=== PATIENT | male | born 1945 | race Caucasian/White ===

== ENCOUNTER → 2017-04-04 | Outpatient (CLI) | payer MEDICARE ==
[~2017-04-04] MED LIST: ASPI-496 PO; OMNIPAQUE 350 MG/ML, 100ML BOTTLE ONE
== END | disposition home or self-care (01) ==
LOC: CFH 09:38
PROVIDERS: ATTEND Internal Medicine Hematology & Oncology
DX: C25.9 Malignant neoplasm of pancreas, unspecified (principal); M47.896 Other spondylosis, lumbar region; R59.1 Generalized enlarged lymph nodes; N28.1 Cyst of kidney, acquired; K86.89 Other specified diseases of pancreas
CPT/HCPCS: 74170; Q9967

== ENCOUNTER 2017-06-14 16:01 | Inpatient (IN) | payer MEDICARE ==
[~2017-06-14] VITALS: Ht 162.6 cm; Wt 59.8 kg
[~2017-06-14 16:01] MED LIST changes: -OMNIPAQUE 350 MG/ML, 100ML BOTTLE ONE
[2017-06-14 16:56] LABS: HEMATOCRIT 39.8 % (39.2-51.8); WHITE BLOOD COUNT 10.8 x10^3/uL (3.4-10)
[2017-06-14 17:07] LABS: BLOOD UREA NITROGEN 11 mg/dL (7-18)
[2017-06-14 17:10] LABS: ASPARTATE AMINO TRANSFERASE 119 U/L (15-37)
[2017-06-14] MEDS ORDERED: SODIUM CHLORIDE FLUSH 10ML SYR IVF ONE (19:30)
[2017-06-14] MEDS ORDERED: OMNIPAQUE 350 MG/ML, 100ML BOTTLE ONE (20:00)
[2017-06-14] MEDS ORDERED: SODIUM CHLORIDE 0.9% 1,000 ML IV SCH (22:18)
[2017-06-14] MEDS ORDERED: POLYETHYLENE GLYCOL 17 GM PACKET PO PRN (22:30)
[2017-06-14] MEDS ORDERED: DOCUSATE 100 MG CAPSULE PO PRN (22:30)
[2017-06-14] MEDS ORDERED: ONDANSETRON 2MG/ML, 2ML IVPush PRN (22:30)
[2017-06-14] MEDS ORDERED: morphine SULFATE 10 MG/ML, 1ML IVPush PRN (22:30)
[2017-06-14 23:27] VITALS: BP 104/60
[2017-06-15 04:39] VITALS: BP 124/68
[2017-06-15 05:18] LABS: HEMATOCRIT 35.7 % (39.2-51.8); WHITE BLOOD COUNT 8.6 x10^3/uL (3.4-10)
[2017-06-15 05:24] LABS: ASPARTATE AMINO TRANSFERASE 119 U/L (15-37); BLOOD UREA NITROGEN 9 mg/dL (7-18)
[2017-06-15 07:12] VITALS: BP 117/68
[2017-06-15] MEDS: SENNA/DOCUSATE TABLET PO SCH (08:04)
[2017-06-15 12:53] VITALS: BP 120/70
[2017-06-15] MEDS ORDERED: POTASSIUM CHLORIDE 40 MEQ in SODIUM CHLORIDE 0.9% 500 ML IV ONE (15:00)
[2017-06-15 20:00] VITALS: BP 110/69
[2017-06-15 21:00] VITALS: BP 124/70
[2017-06-15] MEDS ORDERED: IBUPROFEN 200 MG TABLET PO PRN (21:00)
[2017-06-15] MEDS ORDERED: CEFTRIAXONE 1,000 MG IM SCH (21:00)
[2017-06-15] MEDS: METRONIDAZOLE PMX 500MG/100ML 100 ML IV SCH (22:02)
[2017-06-15] MEDS: CEFTRIAXONE PMX 1GM/50ML 50 ML IV SCH (22:54)
[2017-06-16 02:52] VITALS: BP 124/69
[2017-06-16] MEDS: METRONIDAZOLE PMX 500MG/100ML 100 ML IV SCH ×3 (05:10→20:08)
[2017-06-16 05:21] LABS: HEMATOCRIT 33.8 % (39.2-51.8); HEMOGLOBIN 11.3 g/dL (13.7-18.0); WHITE BLOOD COUNT 10.5 x10^3/uL (3.4-10)
[2017-06-16 05:33] LABS: ASPARTATE AMINO TRANSFERASE 74 U/L (15-37); BLOOD UREA NITROGEN 8 mg/dL (7-18)
[2017-06-16 06:39] VITALS: BP 114/70
[2017-06-16] MEDS: SENNA/DOCUSATE TABLET PO SCH (08:00)
[2017-06-16] MEDS ORDERED: FENTANYL PF 100 MCG/2ML ONE (08:11)
[2017-06-16] MEDS ORDERED: EPHEDRINE 50 MG/ML, 1ML ONE (08:11)
[2017-06-16] MEDS ORDERED: PROPOFOL 10 MG/ML, 20ML ONE (08:11)
[2017-06-16] MEDS ORDERED: SUCCINYLCHOLINE 20 MG/ML, 10ML ONE (08:11)
[2017-06-16] MEDS ORDERED: ONDANSETRON 2MG/ML, 2ML ONE (08:11)
[2017-06-16] MEDS ORDERED: GLYCOPYRROLATE 0.2MG/1ML ONE (08:11)
[2017-06-16] MEDS ORDERED: OMNIPAQUE 350 MG/ML, 50 ML BOTTLE ONE (09:01)
[2017-06-16 13:57] VITALS: BP 112/62
[2017-06-16] MEDS: OXYcodone IR 5MG TABLET PO PRN ×2 (18:28→22:20)
[2017-06-16 19:40] VITALS: BP 99/64
[2017-06-16] MEDS: CEFTRIAXONE PMX 1GM/50ML 50 ML IV SCH (21:36)
[2017-06-17 01:33] VITALS: BP 97/61
[2017-06-17] MEDS: METRONIDAZOLE PMX 500MG/100ML 100 ML IV SCH ×3 (04:05→21:12)
[2017-06-17 04:38] LABS: HEMATOCRIT 33.4 % (39.2-51.8); WHITE BLOOD COUNT 15.1 x10^3/uL (3.4-10)
[2017-06-17 04:48] LABS: BLOOD UREA NITROGEN 9 mg/dL (7-18)
[2017-06-17 04:51] LABS: ASPARTATE AMINO TRANSFERASE 48 U/L (15-37)
[2017-06-17 06:39] VITALS: BP 103/64
[2017-06-17] MEDS: SENNA/DOCUSATE TABLET PO SCH (08:15)
[2017-06-17 13:00] VITALS: BP 99/63
[2017-06-17] MEDS: OXYcodone IR 5MG TABLET PO PRN (16:09)
[2017-06-17 18:45] VITALS: BP 112/71
[2017-06-17] MEDS: CEFTRIAXONE PMX 1GM/50ML 50 ML IV SCH (22:32)
[2017-06-18 02:30] VITALS: BP 114/73
[2017-06-18 04:37] LABS: HEMATOCRIT 31.4 % (39.2-51.8); HEMOGLOBIN 10.4 g/dL (13.7-18.0); WHITE BLOOD COUNT 11.5 x10^3/uL (3.4-10)
[2017-06-18 04:49] LABS: ASPARTATE AMINO TRANSFERASE 38 U/L (15-37); BLOOD UREA NITROGEN 6 mg/dL (7-18)
[2017-06-18] MEDS: METRONIDAZOLE PMX 500MG/100ML 100 ML IV SCH (04:56)
[2017-06-18 06:45] VITALS: BP 117/76
[2017-06-18] MEDS: SENNA/DOCUSATE TABLET PO SCH (09:14)
[2017-06-18] MEDS: OXYcodone IR 5MG TABLET PO PRN (09:14)
[2017-06-18] MEDS ORDERED: CEFD300C37 PO (10:15)
[2017-06-18] MEDS ORDERED: OXYC5TAB3 PO (10:15)
[2017-06-18] MEDS ORDERED: METR500T PO (10:15)
== END 2017-06-18 13:20 | disposition home or self-care (01) | DRG 919 ==
LOC: ED 21:14 → EDIP 21:47 → 3NW 23:16
PROVIDERS: ADMIT Family Medicine; ATTEND Family Medicine
PROC: BF101ZZ Fluoroscopy of Bile Ducts using Low Osmolar Contrast (ICD-10-PCS; 2017-06-16)
PROC: 0F798DZ Dilation of Common Bile Duct with Intraluminal Device, Via Natural or Artificial Opening Endoscopic (ICD-10-PCS; principal; 2017-06-16 08:00)
DX: T85.590A Other mechanical complication of bile duct prosthesis, initial encounter (principal); K83.1 Obstruction of bile duct; E43 Unspecified severe protein-calorie malnutrition; C25.9 Malignant neoplasm of pancreas, unspecified; R64 Cachexia; E87.6 Hypokalemia; G89.29 Other chronic pain; L29.9 Pruritus, unspecified; Z68.22 Body mass index [BMI] 22.0-22.9, adult; Z83.3 Family history of diabetes mellitus; Z85.07 Personal history of malignant neoplasm of pancreas; Z82.49 Family history of ischemic heart disease and other diseases of the circulatory system; Z80.9 Family history of malignant neoplasm, unspecified
CPT/HCPCS: 36415; 74177; 74181; 74328; 80053; 81001; 83605; 83690; 83735; 84100; 85025; 85610; 87040; 93005; 99285; J0696; J2405; J2704; J3010; J3480; J3490; Q9967; C1769; C1874; J0330; J7030; J7040

== ENCOUNTER → 2017-06-28 | Outpatient (CLI) | payer MEDICARE ==
[~2017-06-28] MED LIST changes: +CEFD300C37 PO; +METR500T PO; +OXYC5TAB3 PO
== END | disposition home or self-care (01) ==
LOC: CFH 06:42
PROVIDERS: ATTEND Internal Medicine Hematology & Oncology
DX: N28.1 Cyst of kidney, acquired (principal); C25.9 Malignant neoplasm of pancreas, unspecified; K52.1 Toxic gastroenteritis and colitis; Z90.49 Acquired absence of other specified parts of digestive tract; Z96.89 Presence of other specified functional implants
CPT/HCPCS: 76700

== ENCOUNTER → 2017-09-23 | Outpatient (CLI) | payer MEDICARE ==
[~2017-09-23] MED LIST changes: +OMNIPAQUE 350 MG/ML, 100ML BOTTLE ONE
== END | disposition home or self-care (01) ==
LOC: RAD 11:35
PROVIDERS: ATTEND Internal Medicine Hematology & Oncology
DX: C25.9 Malignant neoplasm of pancreas, unspecified (principal)
CPT/HCPCS: 36415; 71260; 74160; 82565; J1642; Q9967